=== PATIENT | male | born 1955 | race Hispanic/Latino ===

== ENCOUNTER 2016-04-28 09:37 | Emergency (ER) | payer OTHER ==
[~2016-04-28] VITALS: Ht 177.8 cm; Wt 98.0 kg
[~2016-04-28 09:37] MED LIST: Ecotrin PO; Flexeril PO; Lipitor PO; Motrin PO
[2016-04-28] MEDS ORDERED: ATORVASTATIN CA20 MG PO (10:50)
[2016-04-28] MEDS ORDERED: MELOXICAM15 MG PO (10:52)
[2016-04-28] MEDS ORDERED: ASPIRIN325 MG PO (10:52)
[2016-04-28 11:00] LABS: EOSINOPHIL (%) 0 % (0-5); HEMATOCRIT 49.6 % (38.0-50.0); IMMATURE GRANULOCYTE (%) 0.7 % (0.0-0.7); IMMATURE GRANULOCYTE COUNT 1.2 K/uL; LYMPHOCYTE COUNT 1.8 K/uL (1.0-2.8); MCH 29.7 PG (29.0-34.0); MCHC 33.1 G/DL (30.0-36.0); MCV 89.7 FL (86-99); MEAN PLAT.VOLUME 10.5 uM^3 (9.0-12.4); MONOCYTE (%) 6.3 % (3-12); MONOCYTE COUNT 1.1 K/uL (0-0.8); NEUTROPHIL (%) 82.1 % (45-76); NEUTROPHIL COUNT 13.7 K/uL (1.8-6.4); PLATELET COUNT 197 K/uL (156-360); RBC DIS.WIDTH-CV 14.7 % (11.8-14.6); RBC DIS.WIDTH-SD 46.6 % (39-53); RED BLOOD COUNT 5.53 M/uL (4.00-5.50); WHITE BLOOD COUNT 16.8 K/uL (4.1-10.2)
[2016-04-28 11:08] LABS: AMYLASE 60 IU/L (1-118); CHLORIDE 105 mEq/L (99-109); POTASSIUM 4.4 mEq/L (3.7-5.4); SODIUM 139 mEq/L (136-147)
[2016-04-28 11:10] LABS: GLUCOSE 110 mg/dL (70-99)
[2016-04-28 11:11] LABS: ANION GAP 15 MEQ/L (2-14)
[2016-04-28 11:13] LABS: SERUM ETHYL ALCOHOL 26 mg/dL
[2016-04-28 11:14] LABS: GFR ESTIMATE (CALCULATED) > 59 mL/min/
[2016-04-28 11:15] LABS: UREA NITROGEN (BUN) 27 mg/dL (9-23)
[2016-04-28 11:16] LABS: INTER. NORMALIZED RATIO 1.1; PROTHROMBIN TIME 10.9 (9.2-11.2); PTT 27.2 (25-32)
[2016-04-28 11:17] LABS: LIPASE 33 U/L (1.0-51.0)
[2016-04-28 11:21] LABS: TROP-I INTERPRETATION NEGATIVE; TROPONIN-I < 0.01 ng/mL (0.0-0.30)
[2016-04-28 12:46] VITALS: BP 129/91
[2016-04-28 12:58] LABS: ADD MIUA? YES; BILIRUBIN NEGATIVE; BLOOD TRACE; COLOR YELLOW ((YELLOW)); GLUCOSE (STRIP) NEGATIVE; KETONES 15; LEUKOCYTES NEGATIVE; NITRITE NEGATIVE; PH, URINE 5.5 (5-8); PROTEIN (STRIP) TRACE; SPECIFIC GRAVITY 1.027 (1.000-1.030); UROBILINOGEN 0.2 MG/DL (0.2-1.0)
[2016-04-28 13:11] LABS: AMPHETAMINE NEGATIVE (500 ng/mL); BARBITURATES NEGATIVE (200 ng/mL); BENZODIAZEPINES NEGATIVE (150 ng/mL); COCAINE NEGATIVE (150 ng/mL); INTERNAL CONTROLS VALID? YES; METHADONE NEGATIVE (200 ng/mL); METHAMPHETAMINE NEGATIVE (500 ng/mL); OPIATES (MORPHINE) NEGATIVE (100 ng/mL); OXYCODONE NEGATIVE (100 ng/mL); PHENCYCLIDINE NEGATIVE (25 ng/mL); PROPOXYPHENE NEGATIVE (300 ng/mL); THC CANNABINOIDS NEGATIVE (50 ng/mL); TRICYCLIC ANTIDEPRESSANTS NEGATIVE (300 ng/mL)
[2016-04-28 13:16] LABS: RED BLOOD CELLS RARE /HPF (0-5); WHITE BLOOD CELLS NONE SEEN /HPF (0-5)
[2016-04-28 13:17] LABS: BACTERIA NONE SEEN; CASTS PRESENT /LPF; CRYSTALS NONE SEEN; EPITHELIAL CELLS NONE SEEN; HYALINE CASTS RARE /LPF; MUCUS NONE SEEN; UCUL ADDED? NO
== END 2016-04-28 12:47 | disposition home or self-care (01) ==
LOC: EME 09:37
PROVIDERS: Emergency Medicine
DX: R20.0 Anesthesia of skin (principal); F41.0 Panic disorder [episodic paroxysmal anxiety]; F10.129 Alcohol abuse with intoxication, unspecified; F17.200 Nicotine dependence, unspecified, uncomplicated; E78.5 Hyperlipidemia, unspecified; I10 Essential (primary) hypertension; Z86.73 Personal history of transient ischemic attack (TIA), and cerebral infarction without residual deficits
CPT/HCPCS: 70450; 71020; 80048; 81003; 82150; 83690; 84484; 85025; 85610; 85730; 86850; 86900; 86901; 93005; 99281; 99284; G0480